=== PATIENT | male | born 1930 | race Caucasian/White ===

== ENCOUNTER 2018-06-23 11:42 | Inpatient (IN) ==
--- NOTE | 2018-06-23 14:28 | Internal Med History&Physical ---
<Aby Aragon - Last Filed: 06/23/18 14:21> Date of Encounter: 06/23/18 Time of Encounter: 14:51 Internal Medicine - H&P: HPI Chief complaint: SOB Admitted From: Home History of present illness: Mr. Canchola is a 88 year old male with PMH COPD, CAD, GERD and hiatal hernia presented to outside hospital on 06/23/2018 with complaints of worsening shortness of breath and chest pressure. He was transferred to [facility] for further workup and treatment. Information obtained from chart review, patient report and at bedside. reports patient has had progressive and worsening shortness of breath over the last 3 months with associated chest pressure. Patient reports substernal chest pressure that radiates across entire chest, does not radiate to jaw or arm. Says chest pressure typiclly occurs in the evening time once he is sitting down resting. Says he had an episode of abdominal pain and nausea this morning which is now resolved. No chest pain or shortness of breath on my exam. Past Med Surg Social Fam HX - Past Medical History Medical history: COPD, coronary artery disease, GERD, other Psychiatric history: no psych history - Past Surgical History Surgical History: cholecystectomy, colectomy, coronary bypass (CABG), herniorrhaphy Additional surgical history: colon surgery about 3 years ago, portion of colon removed - Social History Smoking Status: Never smoker Smokeless Tobacco Status: No Alcohol use: none Drug use: none - Family History Father Living Status: Age at : 70 Cause of : CHF Mother Living Status: Age at : 82 Cause of : Leukemia Internal Medicine - H&P: Meds Aspirin 81 mg PO DAILY 07/22/17 [History] Cholecalciferol (Vitamin D3) [Vitamin D] 1,000 unit PO DAILY 07/22/17 [History] Co Q-10 200 mg PO DAILY 07/22/17 [History] Cyanocobalamin (Vitamin B-12) [Vitamin B-12] 2,000 mcg PO DAILY 07/22/17 [ History] Ferrous Sulfate [Slow Fe] 142 mg PO DAILY 07/22/17 [History] Metoprolol [Lopressor] 12.5 mg PO DAILY 07/22/17 [History] Omeprazole [PriLOSEC] 20 mg PO BIDAC 07/22/17 [History] Rosuvastatin [Crestor] 40 mg PO HS 07/22/17 [History] Sucralfate [Carafate] 1 gm PO QIDAC #40 tablet 07/22/17 [Rx] 3 Allergy/AdvReac Type Severity Reaction Status Date / Time isosorbide Allergy Palpitation Verified 06/23/18 09:31 s shellfish derived Allergy Flushing Verified 06/23/18 09:31 All Systems PM: A 10-system review of systems was performed and is negative for pertinent findings except as documented above in the HPI. - Constitutional Constitutional: no chills, no fever(s), no night sweats - EENT Eyes: no change in vision, no discharge, no pain, no photophobia Ears: no ear discharge, no ear pain, no tinnitus Nose, mouth and throat: no dysphagia, no nasal discharge, no neck pain, no sore throat - Cardiovascular Cardiovascular ROS IM: chest pain, dyspnea on exertion, no diaphoresis, no dyspnea, no lightheadedness, no palpitations, no syncope - Respiratory Respiratory: dyspnea, no cough, no wheezing, no excessive phlegm production - Gastrointestinal Gastrointestinal: no abdominal pain, no diarrhea, no hematemesis, no hematochezia, no melena, no nausea, no vomiting - Musculoskeletal Musculoskeletal ROS IM: no numbness, no tingling - Integumentary Integumentary IM: no rash, no unusual bruising - Neurological Neurological ROS: no confusion, no convulsions, no focal weakness, no numbness, no tingling, no tremor(s) - Hematologic/Lymphatic Hematologic/Lymphatic: no easy bruising - Constitutional Vitals: Temp Pulse Resp BP Pulse Ox 98.7 F 67 15 152/81 96 06/23/18 13:16 06/23/18 13:16 06/23/18 13:16 06/23/18 13:16 06/23/18 13:16 General appearance: Present: A&O X 3, pleasant, no acute distress Exam: see below - Head Head exam: Present: atraumatic, normocephalic - Eye Eye exam: Present: PERRL, conjuntiva pink, sclera anicteric Pupils: Present: PERRL - Neck Neck exam general surgery: Present: supple, trachea midline. Absent: lymphadenopathy - Respiratory Respiratory exam: Present: decreased breath sounds. Absent: accessory muscle use, rales, rhonchi, wheezes - Cardiovascular Cardiovascular exam: Present: RRR, +S1, +S2. Absent: diastolic murmur, gallop, rubs, systolic murmur - GI/Abdominal GI/Abdominal exam: Present: normal bowel sounds, soft, no peritoneal signs. Absent: distended, tenderness - Extremities Exam Extremities exam: Present: pedal edema, warm, radial pulses palpable and symmetrical. Absent: calf tenderness, cyanotic - Neurological Exam Neurological exam: Present: CN II-XII intact, oriented X3, no focal deficits. Absent: pronater drift, facial droop, speech deficit - Skin Skin exam: Present: dry, intact - Assessment and plan (1) SOB (shortness of breath) Current Visit: Yes Status: Acute Assessment and plan: presented to OSH with complaints of worsening shortness of breath. CXR showed hiatal hernia otherwise nonacute. He does have some lower extremity pitting edema and diminished lung sounds. 07/2017 TTE with EF 65%, no valvular dysfunction or wall motion abnormalities. Give one-time dose IV Lasix. Monitor daily weight, strict I&O's. Repeat echo pending (2) CAD (coronary artery disease) Current Visit: Yes Status: Acute Assessment and plan: hx remote CABG in 2200. Now with intermittent as pressure and shortness of breath. Initial troponin at outside hospital unremarkable. EKG with known fascicular block. Continue to cycle troponin, check echocardiogram. NPO at midnight for stress test in the morning. Qualifiers: Coronary Disease-Associated Artery/Lesion type: bypass graft [place] vs. transplanted heart: [place] heart Associated angina: with stable angina Qualified Code(s): I25.708 - Atherosclerosis of coronary artery bypass graft(s) , unspecified, with other forms of angina pectoris (3) COPD (chronic obstructive pulmonary disease) Current Visit: Yes Status: Acute Assessment and plan: per hx. No evidence of exacerbation. PRN nebulizers Qualifiers: COPD type: unspecified COPD Qualified Code(s): J44.9 - Chronic obstructive pulmonary disease, unspecified (4) GERD (gastroesophageal reflux disease) Current Visit: Yes Status: Acute Assessment and plan: per hx. Cont home PPI Qualifiers: Esophagitis presence: without esophagitis Qualified Code(s): K21.9 - Gastro -esophageal reflux disease without esophagitis (5) DVT prophylaxis Current Visit: Yes Status: Acute Assessment and plan: lovenox (6) Hiatal hernia Current Visit: Yes Status: Acute Assessment and plan: per hx. CXR demonstrated known hiatal hernia. If symptoms persist after cardiac source ruled out consider further workup. - Time Spent With Patient Total time spent is greater than 50% in coordination of care (as documented) at patient's floor/unit and/or counseling patient: <Kirsty Butts - Last Filed: 06/23/18 16:03> Date of Encounter: 06/23/18 Internal Medicine - H&P: HPI History of present illness: Mr. Canchola is a 88 year old male All Systems PM: A 10-system review of systems was performed and is negative for pertinent findings except as documented above in the HPI. - Constitutional Vitals: Temp Pulse Resp BP Pulse Ox 98.7 F 67 15 152/81 96 06/23/18 13:16 06/23/18 13:16 06/23/18 13:16 06/23/18 13:16 06/23/18 13:16 Internal Med - H&P Results - Labs Labs: Cardiac Enzymes 06/23/18 Range/Units 14:59 Troponin I 0.05 H* (< 0.04) ng/mL - Assessment and plan (1) COPD (chronic obstructive pulmonary disease) Current Visit: Yes Status: Acute Qualifiers: COPD type: unspecified COPD Qualified Code(s): J44.9 - Chronic obstructive pulmonary disease, unspecified (2) CAD (coronary artery disease) Current Visit: Yes Status: Acute Qualifiers: Coronary Disease-Associated Artery/Lesion type: bypass graft [place] vs. transplanted heart: [place] heart Associated angina: with stable angina Qualified Code(s): I25.708 - Atherosclerosis of coronary artery bypass graft(s) , unspecified, with other forms of angina pectoris (3) GERD (gastroesophageal reflux disease) Current Visit: Yes Status: Acute Qualifiers: Esophagitis presence: without esophagitis Qualified Code(s): K21.9 - Gastro -esophageal reflux disease without esophagitis (4) DVT prophylaxis Current Visit: Yes Status: Acute (5) SOB (shortness of breath) Current Visit: Yes Status: Acute (6) Hiatal hernia Current Visit: Yes Status: Acute - Time Spent With Patient Total time spent is greater than 50% in coordination of care (as documented) at patient's floor/unit and/or counseling patient: - Attending Attestation Plan of care and medical decision-making was reviewed with the Nurse Practitioner. I agree with the documented findings, disposition and treatment plan as described except to any changes set forth below.
[2018-06-23] MEDS ORDERED: Naloxone 0.4 MG/ML INJ IVP PRN (14:39)
[2018-06-23] MEDS ORDERED: Furosemide 20 MG/2 ML VIAL IVP ONE (14:41)
[2018-06-24 04:19] LABS: Mean Corpuscular Hemoglobin 33.2 pg (28.0-33.3)
[2018-06-24 04:21] LABS: Hemoglobin 12.8 g/dL (12.9-16.9); Immature Platelets 3.5 % (1.1-6.1); Mean Corpuscular HGB Conc 33.7 g/dL (31.6-35.5); Mean Corpuscular Volume 98.4 fL (83.0-100.0); Mean Platelet Volume 10.5 fL (9.4-12.4); Red Blood Count 3.86 M/mcL (4.19-5.50); Red Cell Distribution Width 13.9 % (11.5-14.5)
[2018-06-24 04:41] LABS: BUN/Creatinine Ratio 22 (6-26); Blood Urea Nitrogen 17 mg/dL (8-23); Calcium 8.8 mg/dL (8.6-10.3); Carbon Dioxide 25 mEq/L (23-29); Chloride 106 mEq/L (98-107); Glucose 100 mg/dL (70-105); Osmolality,Calculated 286 (280-300); Potassium 3.5 mEq/L (3.5-5.1); Sodium 137 mEq/L (136-145); eGFR For Non-African Americans > 60 (> 60)
[2018-06-24] MEDS ORDERED: FERROUS SULFATE 142 MG PO SCH (10:00)
[2018-06-24] MEDS: Sucralfate 1 GM TABLET PO SCH ×3 (12:26→21:42)
[2018-06-24] MEDS: Aspirin 81 MG TAB.CHEW PO SCH (12:26)
[2018-06-24] MEDS: Metoprolol XL (24 HR) Succ 25 MG TAB.ER.24H PO SCH (12:26)
[2018-06-24] MEDS: (Ipratropium Bromide [Ipratropium Bromide] 1 SPR) NS SCH ×2 (12:28→20:23)
--- NOTE | 2018-06-24 13:37 | Cardiology Consult Note ---
<Ryan Dyer R - Last Filed: 06/24/18 13:54> Date of Encounter: 06/24/18 Time of Encounter: 13:33 Assessment and Plan (1) SOB (shortness of breath) Current Visit: Yes Status: Acute Pt and report worsening dyspnea over the past 3 months, get short of breath even with normal activities. Reports dyspnea was prior anginal equivalent. TTE EF 70%, mild cLVH, mild LVDD. Troponins borderline 0.05, 0.04 x 2. Stress test 01/2017 negative for ischemia or infarct. Known hx CAD s/p 3V CABG, has COPD with restrictive airway disease on PFTs in 2013. Pt also has moderate-large hiatal hernia on ABD/Pelvic CT 07/2017. All of these could be contributing to pt's dyspnea. Will order ABD CT to re-evaluate hiatal hernia. Will discuss and review with Dr. Salvador. After ABD CT results, will determine if ischemic evaluation needs to be considered (stress test vs LHC). (2) Chest pressure Current Visit: Yes Status: Acute Chest pressure seems atypical--not associated with exertion, mostly occurs in the evening and relieved with tums. Continue Prilosec. Troponins borderline--0.05, 0.04 x 2--unclear significance. TTE EF preserved. As above, known moderate-large hiatal hernia, will re-evaluate with CT. (3) CAD (coronary artery disease) Current Visit: Yes Status: Acute Hx 3V CABG in 2000. Reports LHC in 2009 without intervention. Continue ASA, Statin, BB. Qualifiers: Coronary Disease-Associated Artery/Lesion type: bypass graft [place] vs. transplanted heart: [place] heart Associated angina: with stable angina Qualified Code(s): I25.708 - Atherosclerosis of coronary artery bypass graft(s) , unspecified, with other forms of angina pectoris (4) Hiatal hernia Current Visit: Yes Status: Acute Moderate-large hiatal hernia on ABD/Pelvic CT 07/2017. Will repeat. Could be contributing to chest pressure and dyspnea. (5) Elevated troponin Current Visit: Yes Status: Acute Troponin 0.05, 0.04 x 2. Borderline. Do not suspect true ACS. Unclear significance. TTE EF preserved. As above, will determine if ischemic evaluation is warranted. Discussion w patient/family: The assessment and plan as outlined above was discussed with the patient and/or family members who expressed understanding and agreement. All questions were answered. Thank you for involving us in the care of your patient. Please call with any questions. I will discuss all the above with Dr. Salvador and make changes as necessary. History of Present Illness Consult date: 06/24/18 Requesting physician: Aby Aragon Consult reason: Chest pain Chief complaint: dyspnea, palpitations, chest pain History of present illness: Mr. Canchola is a 88 year old male with PMH of COPD, CAD s/p 3V CABG in 2000, GERD and hiatal hernia presented with complaints of worsening shortness of breath and chest pressure. reports patient has had progressive and worsening shortness of breath over the last 3 months with associated chest pressure. Worsening dyspnea occurs with regular activities. Patient reports substernal chest pressure that radiates across entire chest, does not radiate to jaw or arm. CP not associated with exertion. Per pt and , symptoms similar to prior anginal equivalent which was mostly worsening dyspnea. Troponins 0.05, 0.04 x 2. Cardiology consulted for further recs. TTE resulted-- EF 70%, mild cLVH, mild LVDD. Pt and report tachycardic events at home with HR as high as 160. Holter monitor last year showed multiple brief runs of PAT. Prior CV testing: Holter 01/2017: Occasional PVCs and PACs, short runs PAT. Stress test 01/2017: Perfusion imaging negative for ischemia or infarct, gated EF >70%. TTE 07/2017: EF 65-70%, no significant valvular dysfunction. Past Med Surg Social Fam HX - Past Medical History Medical history: COPD, coronary artery disease, GERD, other Psychiatric history: no psych history - Past Surgical History Surgical History: cholecystectomy, colectomy, coronary bypass (CABG), herniorrhaphy Additional surgical history: colon surgery about 3 years ago, portion of colon removed - Social History Smoking Status: Never smoker Smokeless Tobacco Status: No Alcohol use: none Drug use: none - Family History Father Living Status: Age at : 70 Cause of : CHF Mother Living Status: Age at : 82 Cause of : Leukemia Medications and Allergies Aspirin 81 mg PO DAILY 07/22/17 [History] Cholecalciferol (Vitamin D3) [Vitamin D] 1,000 unit PO DAILY 07/22/17 [History] Cyanocobalamin (Vitamin B-12) [Vitamin B-12] 2,000 mcg PO DAILY 07/22/17 [ History] Ferrous Sulfate [Slow Fe] 142 mg PO DAILY 07/22/17 [History] Omeprazole [PriLOSEC] 20 mg PO BIDAC 07/22/17 [History] Rosuvastatin [Crestor] 40 mg PO HS 07/22/17 [History] Sucralfate [Carafate] 1 gm PO QIDAC #40 tablet 07/22/17 [Rx] Ubidecarenone/Vit E/Vit E Mix [Co-Enzyme Q10 100 mg Softgel] 200 mg PO DAILY [History] Ipratropium [place] [Ipratropium [place]] 1 spr NS BID 06/24/18 [History] Metoprolol XL (24 HR) Succ [Toprol Xl] 12.5 mg PO DAILY 06/24/18 [History] 3 Allergy/AdvReac Type Severity Reaction Status Date / Time isosorbide Allergy Palpitation Verified 06/23/18 09:31 s shellfish derived Allergy Flushing Verified 06/23/18 09:31 All Systems Review: The remainder of the systems were reviewed and are negative - Cardiovascular Cardiovascular: as per HPI, chest pain at rest, chest pain with exertion, dyspnea on exertion, leg edema, palpitations - Respiratory Respiratory: dyspnea Physical Examination Vital Signs, Last 4 Hours Temp Pulse Resp BP Pulse Ox 06/24/18 12:17 98.0 F 67 16 124/66 93 Vital Signs Temp Pulse Resp BP Pulse Ox 06/24/18 12:17 98.0 F 67 16 124/66 93 06/24/18 07:57 97.9 F 63 16 133/71 93 06/24/18 02:55 98.7 F 72 16 124/81 94 06/23/18 23:13 98.3 F 75 16 122/66 91 06/23/18 18:21 99.4 F 77 16 106/49 90 Intake and Output 06/23/18 06/24/18 06/24/18 23:59 07:59 15:59 Output Total 775 / 775 Balance -775 / -775 Output: Urine 775 / 775 Other: Weight 104 kg Patient Weight 06/24/18 23:59 Weight 104 kg General: Conversant, No Apparent Distress HEENT: Atraumatic, Normocephaly, Mucus Membranes Moist Neck: No JVD, Normal carotid pulses Cardiac: Reg Rate and Rhythm, Normal S1 and S2, No Murmur Lungs: Normal Breath Sounds, No Wheeze, Rales, Rhonchi Neuro: Alert and responsive, No focal deficits noted Abdomen: Soft, Non-Tender Skin: No rashes noted on visualized skin Musculoskeletal: No Chest Wall Tenderness Extremities: No Clubbing, No Cyanosis, No Edema, Normal Pulses Results 06/24/18 03:09 06/24/18 03:09 Lab Results 06/23/18 06/23/18 06/24/18 14:59 20:27 03:09 WBC Hgb Hct Plt Count Sodium Potassium Chloride Carbon Dioxide BUN Creatinine Glucose Calcium Troponin I 0.05 H* 0.04 H* 0.04 H* 06/24/18 06/24/18 03:09 03:09 WBC 4.4 Hgb 12.8 L Hct 38.0 Plt Count 93 L Sodium 137 Potassium 3.5 Chloride 106 Carbon Dioxide 25 BUN 17 Creatinine 0.79 Glucose 100 Calcium 8.8 Troponin I Short CBC 06/24/18 Range/Units 03:09 WBC 4.4 (4.3-11.1) K/mcL Hgb 12.8 L (12.9-16.9) g/dL Hct 38.0 (37.5-50.1) % Plt Count 93 L (140-400) K/mcL BMP 06/24/18 Range/Units 03:09 Sodium 137 (136-145) mEq/L Potassium 3.5 (3.5-5.1) mEq/L Chloride 106 (98-107) mEq/L Carbon Dioxide 25 (23-29) mEq/L BUN 17 (8-23) mg/dL Creatinine 0.79 (0.70-1.30) mg/dL Glucose 100 (70-105) mg/dL Calcium 8.8 (8.6-10.3) mg/dL Cardiac Enzymes 06/24/18 06/23/18 06/23/18 Range/Units 03:09 20:27 14:59 Troponin I 0.04 H* 0.04 H* 0.05 H* (< 0.04) ng/mL Impressions Echocardiogram 06/24/18 14:41 Impressions: Normal LV size and systolic function. LVEF= 70 %. Mild concentric VH. Mild diastolic dysfunction. Mildly dilated left atrium . Normal RV size and function. No hemodynamically significant valvular abnormality. Findings: Study Quality * Technically adequate exam. ECG Findings * Normal sinus rhythm. Left Ventricle * LVEF 70%. * Mild concentric left ventricular hypertrophy. * Mild left ventricular diastolic dysfunction. Right Ventricle * Normal right ventricular structure and function. Left Atrium * Mildly dilated left atrium. Right Atrium * Normal right atrial size. Aortic Valve * Trileaflet aortic valve. * Mildly sclerotic aortic valve leaflets. Mitral Valve * Normal mitral valve structure and function. Tricuspid Valve * Normal tricuspid valve structure and function. Pulmonic Valve * Pulmonic valve not well visualized. Aorta * Normally sized aortic root. Pericardium * The pericardium appears normal. IVC * The IVC is not well evaluated. Active Medications Aspirin (Aspirin) 81 mg PO DAILY [facility] Stop: 12/24/18 10:01 Last Admin: 06/24/18 12:26 Dose: 81 mg Metoprolol Succinate (Toprol Xl) 12.5 mg PO DAILY [facility] Stop: 12/24/18 10:01 Last Admin: 06/24/18 12:26 Dose: 12.5 mg Naloxone HCl (Narcan) 0.4 mg IVP Q2MIN PRN PRN Reason: SEE COMMENTS Stop: 12/23/18 14:40 Omeprazole (Prilosec) 20 mg PO BIDAC [facility] PRN Reason: Protocol Stop: 12/24/18 10:01 Last Admin: 06/24/18 12:26 Dose: 20 mg Pharmacy Profile Note (Patient Taking Own Medication) 0 each PO DAILY [facility] Stop: 12/24/18 10:01 Last Admin: 06/24/18 12:28 Dose: Not Given Pharmacy Profile Note (Patient Taking Own Medication) 0 each NS BID [facility] Stop: 12/24/18 10:01 Last Admin: 06/24/18 12:28 Dose: Not Given Pharmacy Profile Note (Patient Taking Own Medication) 0 each PO DAILY [facility] Stop: 12/25/18 09:01 Rosuvastatin Calcium (Crestor) 40 mg PO HS [facility] Stop: 12/24/18 10:01 Last Admin: 06/24/18 12:26 Dose: 40 mg Sucralfate (Carafate) 1 gm PO QIDAC [facility] Stop: 12/24/18 11:31 Last Admin: 06/24/18 12:26 Dose: 1 gm - Imaging and Cardiology Stress Test: report reviewed Echo: report reviewed - EKG Interpretation EKG results cardiology: personally reviewed, other (12 hr tele AVG HR 66, SR) Consult Discharge Plan - Plan Referrals: Lazaro Estes DO [Primary Care Provider] - <Sahara Salvador - Last Filed: 06/24/18 18:41> Date of Encounter: 06/24/18 - Attending Attestation I examined this patient and my medical decision-making was reviewed with the ALLERGY AND IMMUNOLOGY SPECIALIST. I agree with the documented findings, disposition and treatment plan as described except. 88M presenting with a constellation of symptoms including dizziness, dyspnea, chest pressure, fatigue and weakness. After detailed inquiry, it appears that his symptoms have been ongoing for about a year, possibly worse recently although history taking is somewhat challenging and mainly from his . Patient is alert, oriented but has mild baseline cognitive impairment. Admits to functional decline over the past year, sleeping more often throughout the day. Vital signs stable. NAD at the bedside. No concerning exam findings. ECG with RBBB, presumably new. CT chest with moderate to large hiatal hernia 1 year ago. PFTs in 2014 were abnormal. Impression/Plan: 1. Chest Pressure: Symptoms are atypical without acute ECG changes and flat troponins. However, has known CAD and symptoms of chest pressure and dyspnea may be anginal equivalent. We discussed consideration for LHC but given age and comorbidities I have not strongly recommended this. They are contemplative. Continue aspirin, statin, BB. 2. Dyspnea: Possibly multifactorial - has abnormal PFTs in 2014, has moderate to large hiatal hernia 1 year ago. Will repeat the chest CT to re-evaluate dyspnea. Possibly related to angina - have considered LHC. Assessment and Plan Discussion w patient/family: The assessment and plan as outlined above was discussed with the patient and/or family members who expressed understanding and agreement. All questions were answered. Thank you for involving us in the care of your patient. Please call with any questions. History of Present Illness History of present illness: Mr. Canchola is a 88 year old male All Systems Review: The remainder of the systems were reviewed and are negative Physical Examination Vital Signs, Last 4 Hours Temp Pulse Resp BP Pulse Ox 06/24/18 15:45 98.1 F 77 16 100/68 93 Results 06/24/18 03:09 06/24/18 03:09 Lab Results 06/23/18 06/24/18 06/24/18 20:27 03:09 03:09 WBC 4.4 Hgb 12.8 L Hct 38.0 Plt Count 93 L Sodium Potassium Chloride Carbon Dioxide BUN Creatinine Glucose Calcium Troponin I 0.04 H* 0.04 H* 06/24/18 03:09 WBC Hgb Hct Plt Count Sodium 137 Potassium 3.5 Chloride 106 Carbon Dioxide 25 BUN 17 Creatinine 0.79 Glucose 100 Calcium 8.8 Troponin I
--- NOTE | 2018-06-24 15:46 | Internal Med Progress Note ---
Hospitalist Progress Note - Encounter Date of Encounter: 06/24/18 Time of Encounter: 15:44 - Subjective Interval History: Seen and examined at bedside. Patient says he feels weak and tired but overall improved. Ambulated for a good amount hallway and denies chest pain or shortness of breath although he does appear mildly dyspneic on exam. - Exam Vitals: Temp Pulse Resp BP Pulse Ox 98.0 F 67 16 124/66 93 06/24/18 12:17 06/24/18 12:17 06/24/18 12:17 06/24/18 12:17 06/24/18 12:17 Exam: General appearance: Present: A&O X 3, pleasant, no acute distress - Head Head exam: Present: atraumatic, normocephalic - Eye Eye exam: Present: PERRL, conjuntiva pink, sclera anicteric Pupils: Present: PERRL - Neck Neck exam general surgery: Present: supple, trachea midline. Absent: lymphadenopathy - Respiratory Respiratory exam: Present: chest wall tenderness, CTAB. Absent: accessory muscle use, rales, rhonchi, wheezes - Cardiovascular Cardiovascular exam: Present: RRR, +S1, +S2 + murmur. Absent: gallop, rubs - GI/Abdominal GI/Abdominal exam: Present: normal bowel sounds, soft, no peritoneal signs. Absent: distended, tenderness - Extremities Exam Extremities exam: Present: warm, radial pulses palpable and symmetrical. Absent : calf tenderness, cyanotic, pedal edema - Neurological Exam Neurological exam: Present: CN II-XII intact, oriented X3, no focal deficits. Absent: pronater drift, facial droop, speech deficit - Skin Skin exam: Present: dry, intact - Assessment and Plan (1) Acute diastolic (congestive) heart failure Current Visit: Yes Status: Acute Assessment and Plan: presented to OSH with complaints of worsening shortness of breath. CXR showed hiatal hernia otherwise nonacute. He does have some lower extremity pitting edema and diminished lung sounds. 06/24/18 TTE with EF 70%, mild diastolic dysfunction, no significant valvular abnormalities. Symptoms improved with one- time dose IV Lasix however he appears mildly dyspneic. Continue low-dose IV diuresis, monitor daily weights, strict I's and O's. Cardiology following (2) CAD (coronary artery disease) Current Visit: Yes Status: Acute Assessment and Plan: hx remote CABG in 2200. Now with intermittent chest pressure and shortness of breath. Initial troponin at outside hospital unremarkable. Troponin peaked at 0.05 after arrival and trended down. EKG with known fascicular block. TTE with preserved EF as noted above. Stress test ordered however on hold as other sources of chest pain or worked up. Continue to monitor on telemetry. Cardiology following. Continue home ASA, BB, statin. (3) COPD (chronic obstructive pulmonary disease) Current Visit: Yes Status: Acute Assessment and Plan: per hx. No evidence of exacerbation. PRN nebulizers (4) GERD (gastroesophageal reflux disease) Current Visit: Yes Status: Acute Assessment and Plan: per hx. Cont home PPI (5) Hiatal hernia Current Visit: Yes Status: Acute Assessment and Plan: per hx. CXR demonstrated known hiatal hernia. ABD CT with moderate to large hiatal hernia. This could be contributing to dyspnea. NPO at midnight. GI consult (6) Cirrhosis Current Visit: Yes Status: Acute Assessment and Plan: ABD with Liver nodularity consistent with cirrhosis. Appears compensated. Check LFTs. - Time Spent with Patient Total time spent is greater than 50% in coordination of care (as documented) at patient's floor/unit and/or counseling patient: Internal Medicine: Result - Labs CBC & Chem 7: 06/24/18 03:09 06/24/18 03:09 Labs: Short CBC 06/24/18 Range/Units 03:09 WBC 4.4 (4.3-11.1) K/mcL Hgb 12.8 L (12.9-16.9) g/dL Hct 38.0 (37.5-50.1) % Plt Count 93 L (140-400) K/mcL BMP 06/24/18 03:09 Sodium 137 Potassium 3.5 Chloride 106 Carbon Dioxide 25 BUN 17 Creatinine 0.79 Glucose 100 Calcium 8.8 Cardiac Enzymes 06/23/18 06/24/18 Range/Units 20:27 03:09 Troponin I 0.04 H* 0.04 H* (< 0.04) ng/mL - Impressions Impressions Echocardiogram 06/24/18 14:41 Impressions: Normal LV size and systolic function. LVEF= 70 %. Mild concentric VH. Mild diastolic dysfunction. Mildly dilated left atrium . Normal RV size and function. No hemodynamically significant valvular abnormality. Findings: Study Quality * Technically adequate exam. ECG Findings * Normal sinus rhythm. Left Ventricle * LVEF 70%. * Mild concentric left ventricular hypertrophy. * Mild left ventricular diastolic dysfunction. Right Ventricle * Normal right ventricular structure and function. Left Atrium * Mildly dilated left atrium. Right Atrium * Normal right atrial size. Aortic Valve * Trileaflet aortic valve. * Mildly sclerotic aortic valve leaflets. Mitral Valve * Normal mitral valve structure and function. Tricuspid Valve * Normal tricuspid valve structure and function. Pulmonic Valve * Pulmonic valve not well visualized. Aorta * Normally sized aortic root. Pericardium * The pericardium appears normal. IVC * The IVC is not well evaluated. Abdomen CT 06/24/18 15:00 IMPRESSION: Moderate to large hiatal hernia without evidence of wall thickening of the stomach. A small amount of fluid can be seen in the hernia sac. Liver nodularity consistent with cirrhosis. Mild fat containing ventral hernia which appears uncomplicated. Suggestion of left colonic thickening consistent with mild colitis. D/ / Shira Garcia MD / Shira Garcia MD Interpreting Provider: Shira Garcia MD Consult Discharge Plan - Plan Referrals: Lazaro Estes DO [Primary Care Provider] - (2) CAD (coronary artery disease) Qualifiers: Coronary Disease-Associated Artery/Lesion type: bypass graft [place] vs. transplanted heart: [place] heart Associated angina: with stable angina Qualified Code(s): I25.708 - Atherosclerosis of coronary artery bypass graft(s) , unspecified, with other forms of angina pectoris (3) COPD (chronic obstructive pulmonary disease) Qualifiers: COPD type: unspecified COPD Qualified Code(s): J44.9 - Chronic obstructive pulmonary disease, unspecified (4) GERD (gastroesophageal reflux disease) Qualifiers: Esophagitis presence: without esophagitis Qualified Code(s): K21.9 - Gastro- esophageal reflux disease without esophagitis
[2018-06-24] MEDS: Furosemide 20 MG/2 ML VIAL IVP SCH (16:46)
[2018-06-25 05:33] LABS: Hematocrit 39.8 % (37.5-50.1); Hemoglobin 13.4 g/dL (12.9-16.9); Mean Corpuscular HGB Conc 33.7 g/dL (31.6-35.5); Mean Corpuscular Hemoglobin 32.9 pg (28.0-33.3); Mean Corpuscular Volume 97.8 fL (83.0-100.0); Mean Platelet Volume 10.5 fL (9.4-12.4); Platelet Count 104 K/mcL (140-400); Red Blood Count 4.07 M/mcL (4.19-5.50); Red Cell Distribution Width 13.6 % (11.5-14.5)
[2018-06-25 05:39] LABS: INR 1.3; Prothrombin Time 14.4 Seconds (9.4-12.1)
[2018-06-25 05:44] LABS: BUN/Creatinine Ratio 21 (6-26); Blood Urea Nitrogen 16 mg/dL (8-23); Calcium 8.8 mg/dL (8.6-10.3); Carbon Dioxide 24 mEq/L (23-29); Chloride 106 mEq/L (98-107); Glucose 101 mg/dL (70-105); Osmolality,Calculated 287 (280-300); Potassium 3.6 mEq/L (3.5-5.1); Sodium 138 mEq/L (136-145); eGFR For Non-African Americans > 60 (> 60)
[2018-06-25 05:46] LABS: Albumin 3.3 g/dL (3.5-5.7); Albumin/Globulin Ratio 1.2 (1.1-2.2); Bilirubin,Indirect 0.9 mg/dL (0.0-1.2); Bilirubin,Total 0.9 mg/dL (0.3-1.0); Globulin 2.7 g/dL (2.4-3.5)
[2018-06-25] MEDS: *HR* Enoxaparin 40 MG/0.4 ML SYRINGE SQ SCH (05:47)
--- NOTE | 2018-06-25 10:03 | Gastroenterology Consult Note ---
<Katerine Seth - Last Filed: 06/25/18 09:59> Date of Encounter: 06/25/18 Time of Encounter: 08:30 - Assessment and plan (1) Hiatal hernia Status: Acute Assessment and plan: Large hiatal hernia on CT, may be causing chest pressure. Continue PPI will plan for EGD tomorrow if ok with cardiology. (2) GERD (gastroesophageal reflux disease) Status: Acute Qualifiers: Esophagitis presence: without esophagitis Qualified Code(s): K21.9 - Gastro -esophageal reflux disease without esophagitis (3) Chest pressure Status: Acute (4) Cirrhosis Status: Acute Assessment and plan: LFTs wnl, Meld Na 11 Child Rucker class b Qualifiers: Hepatic cirrhosis type: unspecified hepatic cirrhosis Ascites presence: with ascites Qualified Code(s): K74.60 - Unspecified cirrhosis of liver; R18.8 - Other ascites - Time Spent With Patient Total time spent is greater than 50% in coordination of care (as documented) at patient's floor/unit and/or counseling patient: GI History of Present Illness - Data of Consult Patient: new to practice Consult date: 06/25/18 Requesting Physician: Kirsty Butts MD - Consult Narrative Reason for consult: chest pain/large hiatal hernia History of present illness: Mr. Canchola is a 88 year old male with PMH COPD, CAD, GERD and hiatal hernia, and colon resection. He presented to outside hospital on 06/23/2018 with complaints of worsening shortness of breath and chest pressure. He was transferred to [facility] for further workup and treatment. reports patient has had progressive and worsening shortness of breath over the last 3 months with associated chest pressure. Patient reports substernal chest pressure that radiates across entire chest, does not radiate to jaw or arm. Says chest pressure typically occurs in the evening time once he is sitting down resting. He also admits to chronic nausea for the past year. CT shows [id number] hiatal hernia without evidence of wall thickening of the stomach. A small amount of fluid can be seen in the hernia sac. Liver nodularity consistent with cirrhosis. Mild fat containing ventral hernia which appears uncomplicated. Suggestion of left colonic thickening consistent with mild colitis. He states he has GERD and is on omeprazole and carafate but sometimes takes rolaids as well. His states he "not completely with it" and "doesn't always take his meds like he's suppose to". He has occasional diarrhea, mostly in the mornings and after he eats out. He denies rectal bleeding, states he has black stools because he is on iron. colonoscopy: 10/16 friable mucosa at the anastamosis nsaids: asa 81 mg anticoagulants: lovenox Past Med Surg Social Fam HX - Past Medical History Medical history: COPD, coronary artery disease, GERD, other Psychiatric history: no psych history - Past Surgical History Surgical History: cholecystectomy, colectomy, coronary bypass (CABG), herniorrhaphy Additional surgical history: colon surgery about 3 years ago, portion of colon removed - Social History Smoking Status: Never smoker Smokeless Tobacco Status: No Alcohol use: none Drug use: none - Family History Father Living Status: Age at : 70 Cause of : CHF Mother Living Status: Age at : 82 Cause of : Leukemia Review of Systems: GI: as per [place] GENERAL: denies fever, or chills EYES: denies yellow discoloration ENT: denies pain with swallowing or difficulty swallowing CARDIO: see HPI RESP: Shortness of breath with exertion : denies change in color of urine NEURO: generalized weakness HEME: Denies any bruising MS: denies joint pain, joint swelling or back pain. DERM: denies rash or itching PSYCH: Denies history of anxiety or depression - Constitutional Vitals: Temp Pulse Resp BP Pulse Ox 97.9 F 64 17 104/61 94 06/25/18 07:35 06/25/18 07:35 06/25/18 07:35 06/25/18 07:35 06/25/18 07:35 Exam: CONSTITUTIONAL:~alert, no acute distress.~HEAD:~normocephalic.~EYES:~no jaundice.~NECK:~no obvious swelling.~HEART:~regular rate and rhythm, no murmurs. ~LUNGS:~bilateral fair air entry.~ABDOMEN:~non distended, soft, tender to epigastric area, no masses palpable, no organomegaly.~RECTAL EXAM:~Deferred.~ EXTREMITIES:~no clubbing, cyanosis or edema.~SKIN:~no stigmata of chronic liver disease.~NEUROLOGIC:~no obvious focal defect.~~~~ Results - Labs CBC & Chem 7: 06/25/18 04:29 06/25/18 04:29 Labs: Last Result Calcium 8.8 mg/dL (8.6-10.3) 06/25/18 04:29 Troponin I 0.04 ng/mL (< 0.04) H* 06/24/18 03:09 Entire Visit Hgb 13.4 g/dL (12.9-16.9) 06/25/18 04:29 Hct 39.8 % (37.5-50.1) 06/25/18 04:29 PT 14.4 Seconds (9.4-12.1) H 06/25/18 04:29 Total Bilirubin 0.9 mg/dL (0.3-1.0) 06/25/18 04:29 AST 37 Units/L (13-39) 06/25/18 04:29 ALT 19 Units/L (7-52) 06/25/18 04:29 - ABG ABG results: PT/INR, D-dimer PT 14.4 Seconds (9.4-12.1) H 06/25/18 04:29 - Impressions Impressions Echocardiogram 06/24/18 14:41 Impressions: Normal LV size and systolic function. LVEF= 70 %. Mild concentric VH. Mild diastolic dysfunction. Mildly dilated left atrium . Normal RV size and function. No hemodynamically significant valvular abnormality. Findings: Study Quality * Technically adequate exam. ECG Findings * Normal sinus rhythm. Left Ventricle * LVEF 70%. * Mild concentric left ventricular hypertrophy. * Mild left ventricular diastolic dysfunction. Right Ventricle * Normal right ventricular structure and function. Left Atrium * Mildly dilated left atrium. Right Atrium * Normal right atrial size. Aortic Valve * Trileaflet aortic valve. * Mildly sclerotic aortic valve leaflets. Mitral Valve * Normal mitral valve structure and function. Tricuspid Valve * Normal tricuspid valve structure and function. Pulmonic Valve * Pulmonic valve not well visualized. Aorta * Normally sized aortic root. Pericardium * The pericardium appears normal. IVC * The IVC is not well evaluated. Abdomen CT 06/24/18 15:00 IMPRESSION: Gyzpjxzb-[id number]-ezuww hiatal hernia without evidence of wall thickening of the stomach. A small amount of fluid can be seen in the hernia sac. Liver nodularity consistent with cirrhosis. Mild fat containing ventral hernia which appears uncomplicated. Suggestion of left colonic thickening consistent with mild colitis. D/ / 06/24/2018 16:15:17 Shira Garcia MD / [email or web address] Interpreting Provider: Shira Garcia MD Consult Discharge Plan - Plan Instructions: Heart Failure (DC), Chronic Obstructive Pulmonary Disease (DC) Referrals: Katerine Seth [Advanced Practice Nurse] - (hospital follow up requested. office will call you with date and time of appointment. If they do not call you , call them. ) Lazaro Estes, [Primary Care Provider] - 07/01/18 11:30 am () Prescriptions: Furosemide [Lasix] 10 mg PO DAILY 3 Days #3 tablet Ranolazine [Ranexa] 500 mg PO BID 30 Days #60 tab.er.12h <Alexis Redd - Last Filed: 07/20/18 15:52> Date of Encounter: 06/25/18 - Time Spent With Patient Total time spent is greater than 50% in coordination of care (as documented) at patient's floor/unit and/or counseling patient: GI History of Present Illness - Data of Consult Requesting Physician: Kirsty Butts MD - Consult Narrative History of present illness: Mr. Canchola is a 88 year old male - Constitutional Vitals: Temp Pulse Resp BP Pulse Ox 97.7 F 81 20 120/74 93 06/26/18 13:00 06/26/18 13:00 06/26/18 15:39 06/26/18 13:00 06/26/18 15:39 Results - Labs CBC & Chem 7: 06/26/18 02:54 06/26/18 02:54 Labs: Last Result Calcium 8.7 mg/dL (8.6-10.3) 06/26/18 02:54 Troponin I 0.04 ng/mL (< 0.04) H* 06/24/18 03:09 Entire Visit Hgb 13.3 g/dL (12.9-16.9) 06/26/18 02:54 Hct 38.8 % (37.5-50.1) 06/26/18 02:54 PT 14.4 Seconds (9.4-12.1) H 06/25/18 04:29 Total Bilirubin 0.9 mg/dL (0.3-1.0) 06/25/18 04:29 AST 37 Units/L (13-39) 06/25/18 04:29 ALT 19 Units/L (7-52) 06/25/18 04:29 - ABG ABG results: PT/INR, D-dimer PT 14.4 Seconds (9.4-12.1) H 06/25/18 04:29 - Attending Attestation I have personally performed a face to face evaluation on this patient. I have reviewed and agree with the care plan. History and Exam by me shows:
[2018-06-25] MEDS: Ranolazine 500 MG TAB.ER.12H PO SCH ×2 (11:32→21:08)
[2018-06-25] MEDS: Sucralfate 1 GM TABLET PO SCH ×4 (11:34→21:08)
[2018-06-25] MEDS: Aspirin 81 MG TAB.CHEW PO SCH (11:34)
[2018-06-25] MEDS: Metoprolol XL (24 HR) Succ 25 MG TAB.ER.24H PO SCH (11:34)
[2018-06-25] MEDS: VIT E PO SCH (11:36)
[2018-06-25] MEDS: (Ipratropium Bromide [Ipratropium Bromide] 1 SPR) NS SCH ×2 (11:36→21:09)
[2018-06-25] MEDS: Furosemide 20 MG/2 ML VIAL IVP SCH (11:36)
[2018-06-25] MEDS: UBIDECARENONE PO SCH (11:36)
[2018-06-25] MEDS: VIT E MIX PO SCH (11:36)
--- NOTE | 2018-06-25 11:54 | Cardiology Progress Note ---
Date of Encounter: 06/25/18 Time of Encounter: 08:30 Assessment and Plan (1) Shortness of breath Current Visit: Yes Status: Acute Pt and report worsening dyspnea over the past 6+ months. Reports shortness of breath occurs at both rest and exertion. Patient is noted to have difficulty describing symptoms, PMHx, and seems forgetful at times. TTE EF 70%, mild cLVH, mild LVDD. Troponins borderline 0.05, 0.04 x 2. Stress test 01/2017 negative for ischemia or infarct. 24 I&O: -1475 mL; on IV lasix. Appears euvolemic upon exam, would recommend changing to po (low dose). Known hx CAD s/p 3V CABG, has COPD with restrictive airway disease on PFTs in 2013. Pt also has moderate-large hiatal hernia on ABD/Pelvic CT 07/2017. All of these could be contributing to pt's dyspnea. (2) Elevated troponin Current Visit: Yes Status: Acute Troponin 0.05, 0.04 x 2. Borderline. Do not suspect true ACS. Unclear significance. TTE EF preserved. Recent normal stress test January 2017, do not recommend repeating stress test at this time. I discussed possible LHC; however given advanced age, discussed with patient/ increased risk for CVA and risk of KATHY, AL, and . At this point, given other co-morbidities which may be contributing to symptoms, they want to continue medical therapy. Will start Ranexa. (3) CAD (coronary artery disease) Current Visit: Yes Status: Acute Hx 3V CABG in 2000. Reports LHC in 2009 without intervention. Continue ASA, Statin, BB. Qualifiers: Coronary Disease-Associated Artery/Lesion type: bypass graft [place] vs. transplanted heart: [place] heart Associated angina: without angina Qualified Code(s): I25.810 - Atherosclerosis of coronary artery bypass graft(s) without angina pectoris (4) Hiatal hernia Current Visit: Yes Status: Acute Moderate-large hiatal hernia on ABD/Pelvic CT 07/2017. Will repeat. Could be contributing to chest pressure and dyspnea. (5) Chest pressure Current Visit: Yes Status: Acute Chest pressure seems atypical--not associated with exertion, mostly occurs in the evening and relieved with tums. Continue Prilosec. Troponins borderline--0.05, 0.04 x 2--unclear significance. TTE EF preserved. As above, known moderate-large hiatal hernia, remains moderate-large. GI consulted and following with plans for EGD in AM. Discussion w patient/family: The assessment and plan as outlined above was discussed with the patient and/or family members who expressed understanding and agreement. All questions were answered. Thank you for involving us in the care of your patient. Please call with any questions. The patient will be discussed and reviewed with Dr. Salvador; changes to be made accordingly. Subjective Principal diagnosis: Shortness of breath Interval history: Seen and examined. Reports only has dyspnea at rest, has no symptoms when up walking around. Reports when does have shortness of breath, improves after he takes a Tums. He denies chest pain or pressure. He denies ever having chest pain or discomfort. Objective Vital Signs, Last 4 Hours Temp Pulse Resp BP Pulse Ox 06/25/18 11:20 97.6 F 70 17 143/81 94 General: Conversant, No Apparent Distress HEENT: Atraumatic, Normocephaly, Mucus Membranes Moist Cardiac: Reg Rate and Rhythm, Normal S1 and S2 Lungs: Normal Breath Sounds Neuro: Alert and responsive Abdomen: Soft Skin: No rashes noted on visualized skin Musculoskeletal: No Chest Wall Tenderness Extremities: No Edema, Normal Pulses Results 06/25/18 04:29 06/25/18 04:29 Lab Results 06/25/18 06/25/18 06/25/18 04:29 04:29 04:29 WBC 4.2 L Hgb 13.4 Hct 39.8 Plt Count 104 L INR 1.3 Sodium 138 Potassium 3.6 Chloride 106 Carbon Dioxide 24 BUN 16 Creatinine 0.75 Glucose 101 Calcium 8.8 Total Bilirubin AST ALT Alkaline Phosphatase 06/25/18 04:29 WBC Hgb Hct Plt Count INR Sodium Potassium Chloride Carbon Dioxide BUN Creatinine Glucose Calcium Total Bilirubin 0.9 AST 37 ALT 19 Alkaline Phosphatase 88 - Imaging and Cardiology Echo: report reviewed - EKG Interpretation EKG results cardiology: personally reviewed Consult Discharge Plan - Plan Referrals: Lazaro Estes DO [Primary Care Provider] - 07/01/18 11:30 am ()
--- NOTE | 2018-06-25 11:58 | Internal Med Progress Note ---
Hospitalist Progress Note - Encounter Date of Encounter: 06/25/18 Time of Encounter: 11:56 - Subjective Interval History: No acute events. No complaints. - Exam Vitals: Temp Pulse Resp BP Pulse Ox 97.6 F 70 17 143/81 94 06/25/18 11:20 06/25/18 11:20 06/25/18 11:20 06/25/18 11:20 06/25/18 11:20 Exam: Gen: NAD, AAOx3 CVS: RRR Lungs: Rales at lower lobes. Abd: NT, ND Ext: bipedal edema 1+ both lower extremities. - Assessment and Plan (1) Acute diastolic (congestive) heart failure Current Visit: Yes Status: Acute Assessment and Plan: presented to OSH with complaints of worsening shortness of breath. CXR showed hiatal hernia otherwise nonacute. He does have some lower extremity pitting edema and diminished lung sounds. 06/24/18 TTE with EF 70%, mild diastolic dysfunction, no significant valvular abnormalities. Symptoms improved with one- time dose IV Lasix however he appears mildly dyspneic. Continue low-dose IV diuresis, monitor daily weights, strict I's and O's. Cardiology following (2) COPD (chronic obstructive pulmonary disease) Current Visit: Yes Status: Acute Assessment and Plan: Patient complains of wheezing at night time Ipratroprium neb prn. No wheezing on my exam, will hold on steroid therapy for now. (3) CAD (coronary artery disease) Current Visit: Yes Status: Acute Assessment and Plan: hx remote CABG in 2200. Now with intermittent chest pressure and shortness of breath. Initial troponin at outside hospital unremarkable. Troponin peaked at 0.05 after arrival and trended down. EKG with known fascicular block. TTE with preserved EF as noted above. Stress test ordered however on hold as other sources of chest pain or worked up. Continue to monitor on telemetry. Cardiology following, recommendations appreciated. (4) GERD (gastroesophageal reflux disease) Current Visit: Yes Status: Acute Assessment and Plan: per hx. Cont home PPI (5) Hiatal hernia Current Visit: Yes Status: Acute Assessment and Plan: per hx. CXR demonstrated known hiatal hernia. ABD CT with moderate to large hiatal hernia. This could be contributing to dyspnea. NPO at midnight. GI consult Plan for EGD (6) Cirrhosis Current Visit: Yes Status: Acute Assessment and Plan: ABD with Liver nodularity consistent with cirrhosis. Appears compensated. Check LFTs. (7) Weakness Current Visit: Yes Status: Acute Assessment and Plan: PT/OT - Time Spent with Patient Total time spent is greater than 50% in coordination of care (as documented) at patient's floor/unit and/or counseling patient: Internal Medicine: Result - Labs CBC & Chem 7: 06/25/18 04:29 06/25/18 04:29 Labs: Short CBC 06/25/18 Range/Units 04:29 WBC 4.2 L (4.3-11.1) K/mcL Hgb 13.4 (12.9-16.9) g/dL Hct 39.8 (37.5-50.1) % Plt Count 104 L (140-400) K/mcL BMP 06/25/18 04:29 Sodium 138 Potassium 3.6 Chloride 106 Carbon Dioxide 24 BUN 16 Creatinine 0.75 Glucose 101 Calcium 8.8 Liver Function 06/25/18 Range/Units 04:29 Total Bilirubin 0.9 (0.3-1.0) mg/dL Direct Bilirubin 0.0 (0.0-0.2) mg/dL AST 37 (13-39) Units/L ALT 19 (7-52) Units/L Alkaline Phosphatase 88 (34-104) Units/L Albumin 3.3 L (3.5-5.7) g/dL - ABG Interpretation ABG results: PT/INR, D-dimer PT 14.4 Seconds (9.4-12.1) H 06/25/18 04:29 - Impressions Impressions Echocardiogram 06/24/18 14:41 Impressions: Normal LV size and systolic function. LVEF= 70 %. Mild concentric VH. Mild diastolic dysfunction. Mildly dilated left atrium . Normal RV size and function. No hemodynamically significant valvular abnormality. Findings: Study Quality * Technically adequate exam. ECG Findings * Normal sinus rhythm. Left Ventricle * LVEF 70%. * Mild concentric left ventricular hypertrophy. * Mild left ventricular diastolic dysfunction. Right Ventricle * Normal right ventricular structure and function. Left Atrium * Mildly dilated left atrium. Right Atrium * Normal right atrial size. Aortic Valve * Trileaflet aortic valve. * Mildly sclerotic aortic valve leaflets. Mitral Valve * Normal mitral valve structure and function. Tricuspid Valve * Normal tricuspid valve structure and function. Pulmonic Valve * Pulmonic valve not well visualized. Aorta * Normally sized aortic root. Pericardium * The pericardium appears normal. IVC * The IVC is not well evaluated. Abdomen CT 06/24/18 15:00 IMPRESSION: Cnsbkygq-xg-clrow hiatal hernia without evidence of wall thickening of the stomach. A small amount of fluid can be seen in the hernia sac. Liver nodularity consistent with cirrhosis. Mild fat containing ventral hernia which appears uncomplicated. Suggestion of left colonic thickening consistent with mild colitis. D/ / 06/24/2018 16:15:17 Shira Garcia MD / [email or web address] Interpreting Provider: Shira Garcia MD Consult Discharge Plan - Plan Referrals: Lazaro Estes DO [Primary Care Provider] - 07/01/18 11:30 am () (2) COPD (chronic obstructive pulmonary disease) Qualifiers: COPD type: unspecified COPD Qualified Code(s): J44.9 - Chronic obstructive pulmonary disease, unspecified (3) CAD (coronary artery disease) Qualifiers: Coronary Disease-Associated Artery/Lesion type: bypass graft [place] vs. transplanted heart: [place] heart Associated angina: with stable angina Qualified Code(s): I25.708 - Atherosclerosis of coronary artery bypass graft(s) , unspecified, with other forms of angina pectoris (4) GERD (gastroesophageal reflux disease) Qualifiers: Esophagitis presence: without esophagitis Qualified Code(s): K21.9 - Gastro- esophageal reflux disease without esophagitis (6) Cirrhosis Qualifiers: Hepatic cirrhosis type: unspecified hepatic cirrhosis Ascites presence: with ascites Qualified Code(s): K74.60 - Unspecified cirrhosis of liver; R18.8 - Other ascites
[2018-06-25] MEDS: Ipratropium Neb 0.5 MG NEBULIZER IH SCH ×4 (15:19→23:22)
[2018-06-26 03:47] LABS: Hematocrit 38.8 % (37.5-50.1); Hemoglobin 13.3 g/dL (12.9-16.9); Mean Corpuscular HGB Conc 34.3 g/dL (31.6-35.5); Mean Corpuscular Hemoglobin 33.5 pg (28.0-33.3); Mean Corpuscular Volume 97.7 fL (83.0-100.0); Mean Platelet Volume 10.4 fL (9.4-12.4); Platelet Count 100 K/mcL (140-400); Red Blood Count 3.97 M/mcL (4.19-5.50); Red Cell Distribution Width 13.5 % (11.5-14.5)
[2018-06-26 04:00] LABS: BUN/Creatinine Ratio 24 (6-26); Blood Urea Nitrogen 21 mg/dL (8-23); Calcium 8.7 mg/dL (8.6-10.3); Carbon Dioxide 25 mEq/L (23-29); Chloride 108 mEq/L (98-107); Glucose 106 mg/dL (70-105); Osmolality,Calculated 291 (280-300); Potassium 3.9 mEq/L (3.5-5.1); Sodium 139 mEq/L (136-145); eGFR For Non-African Americans > 60 (> 60)
[2018-06-26] MEDS: Ipratropium Neb 0.5 MG NEBULIZER IH SCH ×4 (04:35→15:39)
[2018-06-26] MEDS: *HR* Enoxaparin 40 MG/0.4 ML SYRINGE SQ SCH (05:58)
[2018-06-26] MEDS ORDERED: Propofol 500 MG/50 ML INFUS..BTL ONE ×2 (07:18→09:15)
[2018-06-26] MEDS ORDERED: Lidocaine -MPF 2% 2 ML VIAL ONE ×2 (07:19→09:15)
--- NOTE | 2018-06-26 08:07 | Anesthesia Evaluation PreOp ---
<Glo Merritt Yokasta - Last Filed: 06/26/18 09:43> Date of Encounter: 06/26/18 Time of Encounter: 09:26 - Past History VISUAL DESIGNER History: Other (Dementia) Anesthesia History: Past Anesthesia ([place], Colectomy [2015], CABG, Hernia repair) Medications and Allergies Aspirin 81 mg PO DAILY 07/22/17 [History] Cholecalciferol (Vitamin D3) [Vitamin D3] 1,000 unit PO DAILY 07/22/17 [History] Cyanocobalamin (Vitamin B-12) [Vitamin B-12] 2,000 mcg PO DAILY 07/22/17 [ History] Ferrous Sulfate [Slow Fe] 142 mg PO DAILY 07/22/17 [History] Omeprazole [PriLOSEC] 20 mg PO BIDAC 07/22/17 [History] Rosuvastatin [Crestor] 40 mg PO HS 07/22/17 [History] Sucralfate [Carafate] 1 gm PO QIDAC #40 tablet 07/22/17 [Rx] Ubidecarenone/Vit E/Vit E Mix [Co-Enzyme Q10 100 mg Softgel] 200 mg PO DAILY [History] Ipratropium [place] 1 spr NS BID 06/24/18 [History] Metoprolol XL (24 HR) Succ [Toprol Xl] 12.5 mg PO DAILY 06/24/18 [History] Furosemide [Lasix] 10 mg PO DAILY 3 Days #3 tablet 06/26/18 [Rx] Ranolazine [Ranexa] 500 mg PO BID 30 Days #60 tab.er.12h 06/26/18 [Rx] 3 Allergy/AdvReac Type Severity Reaction Status Date / Time isosorbide Allergy Palpitation Verified 06/23/18 09:31 s shellfish derived Allergy Flushing Verified 06/23/18 09:31 Anesthesia Results - Labs 06/26/18 02:54 06/26/18 02:[address] 06/24/18 15:00 IMPRESSION: [id number] hiatal hernia without evidence of wall thickening of the stomach. A small amount of fluid can be seen in the hernia sac. Liver nodularity consistent with cirrhosis. Mild fat containing ventral hernia which appears uncomplicated. Suggestion of left colonic thickening consistent with mild colitis. D/ / 06/24/2018 16:15:17 Shira Garcia MD / [email or web address] Interpreting Provider: Shira Garcia MD Anesthesia Exam Vital Signs Temp Pulse Resp BP Pulse Ox 06/26/18 09:18 97.6 F 78 18 119/87 91 06/26/18 07:45 97.5 F L 82 18 129/85 92 06/26/18 04:35 16 94 06/26/18 03:33 97.7 F 68 16 160/89 91 06/25/18 23:43 98.1 F 66 16 88/48 90 06/25/18 23:22 16 96 06/25/18 19:51 16 96 06/25/18 19:41 98.2 F 74 16 104/63 90 06/25/18 15:40 97.5 F L 79 18 110/68 92 06/25/18 11:20 97.6 F 70 17 143/81 94 Intake and Output 06/25/18 06/26/18 06/26/18 23:59 07:59 15:59 Other: Weight 98 kg Patient Weight 06/26/18 23:59 Weight 98 kg Height: 5'10" Weight: 216# BMI = 31 - HEENT Pupil (Motor): Pupils equal, EOMI Mallampati: II Teeth: Edentulous Oral Opening: Greater than 3 - VISUAL DESIGNER LOC: Oriented VISUAL DESIGNER Motor: Normal RUE, Normal LUE, Normal RLE, Normal LLE, Normal Face VISUAL DESIGNER Sensory: Normal: RUE, LUE, RLE, LLE, Face - Cardiac Rhythm: Regular Murmur: None - Pulmonary Breath Sounds: bilateral Clear Respiratory Effort: Symmetrical <Barron Cheema - Last Filed: 06/28/18 07:12> Date of Encounter: 06/28/18 - Past History Planned Operation: EGD Cardiac History: Cardiac Surgery (3V CABG 2000) Pulmonary History: COPD (with restrictive airway disease) Other Medical History: Hepatic (cirrhosis), GERD, Other (hiatal hernia) Alcohol Use: none Drug use: none - Meds/Allergy Pre-op Review Medications Reviewed: Yes Allergies Reviewed: Yes Beta Blockers on Current Med List: No Anesthesia Results - Labs 06/26/18 02:54 06/26/18 02:54 - Imaging EKG: report reviewed, image reviewed Additional studies: Echo Impressions: Normal LV size and systolic function. LVEF= 70 %. Mild concentric VH. Mild diastolic dysfunction. Mildly dilated left atrium . Normal RV size and function. No hemodynamically significant valvular abnormality. Findings: Study Quality * Technically adequate exam. ECG Findings * Normal sinus rhythm. Left Ventricle * LVEF 70%. * Mild concentric left ventricular hypertrophy. * Mild left ventricular diastolic dysfunction. Right Ventricle * Normal right ventricular structure and function. Left Atrium * Mildly dilated left atrium. Right Atrium * Normal right atrial size. Aortic Valve * Trileaflet aortic valve. * Mildly sclerotic aortic valve leaflets. Mitral Valve * Normal mitral valve structure and function. Tricuspid Valve * Normal tricuspid valve structure and function. Pulmonic Valve * Pulmonic valve not well visualized. Aorta * Normally sized aortic root. Pericardium * The pericardium appears normal. IVC * The IVC is not well evaluated. Anesthesia Assess/Plan ASA Score: 3 Modified [place] Scale for Level of Consciousness: Cooperative, oriented, and tranquil Anesthetic Plan: MAC Monitoring Plan: Standard Monitors Recovery Plan: PACU
[2018-06-26] MEDS: VIT E MIX PO SCH (08:27)
[2018-06-26] MEDS: UBIDECARENONE PO SCH (08:27)
[2018-06-26] MEDS: VIT E PO SCH (08:27)
[2018-06-26] MEDS: (Ipratropium Bromide [Ipratropium Bromide] 1 SPR) NS SCH (08:27)
[2018-06-26] MEDS ORDERED: Fluticasone Propionate Nasal 50 MCG/SPRAY BOTTLE NS SCH (09:00)
[2018-06-26] MEDS ORDERED: Simethicone 40 MG/0.6 ML MLS IR ONE (10:01)
[2018-06-26] MEDS ORDERED: Tetracaine/Benzocaine/Butamben 200MG/SPRAY (100SPY/BOT) MM ONE (10:01)
[2018-06-26] MEDS: Sucralfate 1 GM TABLET PO SCH ×2 (12:15→12:22)
[2018-06-26] MEDS: Furosemide 20 MG/2 ML VIAL IVP SCH (12:20)
[2018-06-26] MEDS: Metoprolol XL (24 HR) Succ 25 MG TAB.ER.24H PO SCH (12:21)
[2018-06-26] MEDS: Aspirin 81 MG TAB.CHEW PO SCH (12:21)
[2018-06-26] MEDS: Ranolazine 500 MG TAB.ER.12H PO SCH (12:23)
--- NOTE | 2018-06-26 14:27 | Discharge Summary ---
- NOTES TO OUTPATIENT PROVIDER Notes to Outpatient Provider: admitted with CHF, responded to diuresis. Discussed with patient low sodium diet, monitoring weight and fluid intake as well as output. Found to have moderate to large hiatal hernia. Is to have follow-up with GI for esophageal dilation as well. Please ensure follow-up with GI Orders not resulted at time of discharge: Pending orders 06/27/18 04:00 BMP [Basic Metabolic Panel] AM 0400 Complete Blood Count w/o Diff [HEME] AM 04006/28/18 04:00 BMP [Basic Metabolic Panel] AM 0400 Complete Blood Count w/o Diff [HEME] AM 04006/29/18 04:00 BMP [Basic Metabolic Panel] AM 0400 Complete Blood Count w/o Diff [HEME] AM 0400 Date of Encounter: 06/26/18 Time of Encounter: 14:22 - Discharge Diagnosis (1) Hiatal hernia Priority: Secondary Status: Acute (2) COPD (chronic obstructive pulmonary disease) Priority: Primary Status: Acute Qualifiers: COPD type: unspecified COPD Qualified Code(s): J44.9 - Chronic obstructive pulmonary disease, unspecified (3) CAD (coronary artery disease) Priority: Secondary Status: Acute Qualifiers: Coronary Disease-Associated Artery/Lesion type: bypass graft [place] vs. transplanted heart: [place] heart Associated angina: without angina Qualified Code(s): I25.810 - Atherosclerosis of coronary artery bypass graft(s) without angina pectoris (4) Acute diastolic (congestive) heart failure Priority: Primary Status: Acute (5) GERD (gastroesophageal reflux disease) Priority: Secondary Status: Acute Qualifiers: Esophagitis presence: without esophagitis Qualified Code(s): K21.9 - Gastro -esophageal reflux disease without esophagitis (6) Cirrhosis Priority: Secondary Status: Acute Qualifiers: Hepatic cirrhosis type: unspecified hepatic cirrhosis Ascites presence: with ascites Qualified Code(s): K74.60 - Unspecified cirrhosis of liver; R18.8 - Other ascites (7) Weakness Priority: Secondary Status: Acute Hospital course: Mr. Canchola is a 88 year old male who was admitted with worsening shortness of breath and chest pressure. Cardiac workup was unremarkable with negative EKG, cardiac enzymes. Given patient's comorbid his advanced age left heart catheter was not pursued, stress test not completed his family opted for medical management. Per recommendations of cardiology patient is being sent home with prescriptions for aspirin, statin, beta ky and Ranexa. During the stay the patient was found to have a moderate to large hiatal hernia and has a follow -up with gastroenterology in 2-3 weeks. He is also found to have stenosis and follow-up should be scheduled for esophageal dilation. He has had an uneventful hospital course and has had a positive response to diuresis with weight decreasing from 105 kg to 98 kg in a net negative fluid volume of 1475 at time of discharge. He was able to ambulate around the unit on room air with SPO2 dropping to a low of 91% but immediately rebounding to appropriate levels of 92-93% additionally, he is being discharged on a 3 day dose of oral Lasix at 10 mg daily. Has been given education on strict I's and O monitoring, daily weight monitoring and low-sodium diet. Please reevaluate understanding. Has been instructed to return to the ED should chest pain, shortness of breath and/ or bilateral lower extremity swelling return. He does have an underlying component of dementia so these instructions are also being relayed to his family members. Discharge discussed with: patient, nurse - Time Spent with Patient Total time spent providing and/or coordinating discharge services: Less than 30 minutes - Discharge Medications Prescriptions: Ranolazine [Ranexa] 500 mg PO BID 30 Days #60 tab.er.12h Home Medications: Aspirin 81 mg PO DAILY 07/22/17 [History] Cholecalciferol (Vitamin D3) [Vitamin D3] 1,000 unit PO DAILY 07/22/17 [History] Cyanocobalamin (Vitamin B-12) [Vitamin B-12] 2,000 mcg PO DAILY 07/22/17 [ History] Ferrous Sulfate [Slow Fe] 142 mg PO DAILY 07/22/17 [History] Omeprazole [PriLOSEC] 20 mg PO BIDAC 07/22/17 [History] Rosuvastatin [Crestor] 40 mg PO HS 07/22/17 [History] Sucralfate [Carafate] 1 gm PO QIDAC #40 tablet 07/22/17 [Rx] Ubidecarenone/Vit E/Vit E Mix [Co-Enzyme Q10 100 mg Softgel] 200 mg PO DAILY [History] Ipratropium [place] 1 spr NS BID 06/24/18 [History] Metoprolol XL (24 HR) Succ [Toprol Xl] 12.5 mg PO DAILY 06/24/18 [History] Furosemide [Lasix] 10 mg PO DAILY 3 Days #3 tablet 06/26/18 [Rx] Ranolazine [Ranexa] 500 mg PO BID 30 Days #60 tab.er.12h 06/26/18 [Rx] Allergies/Adverse Reactions: 3 Allergy/AdvReac Type Severity Reaction Status Date / Time isosorbide Allergy Palpitation Verified 06/23/18 09:31 s shellfish derived Allergy Flushing Verified 06/23/18 09:31 Date of admission: 06/25/18 18:40 Primary care physician: Lazaro Etses DO Consults: 06/24/18 13:31 Consult to Cardiology [CONS] Routine Comment: Per hospitalist Consulting Provider: Cardiology Emy Reason for Consult: chest pain Call Completed: Yes 06/24/18 15:45 Consult to Gastroenterology [CONS] Routine Consulting Provider: Gastroenterology Emy Reason for Consult: Large hiatal hernia Call Completed: Yes 06/25/18 11:57 Consult to Physical Therapy [CONS] Routine Comment: Evaluate, develop and implement POC Reason for Consult: weakness, trouble walking Does patient have active BEDREST order?: No Is patient medically & hemodynamically stable?: Yes Patient assessed for mobility or mobilized this visit?: Yes Discharging clinician: Don Vera Anticipated date of discharge: 06/26/18 - Constitutional Vitals: Temp Pulse Resp BP Pulse Ox 97.6 F 78 20 119/87 94 06/26/18 09:18 06/26/18 09:18 06/26/18 11:08 06/26/18 09:18 06/26/18 11:08 General appearance: Present: A&O X 3, pleasant, no acute distress Exam: PHYSICAL EXAMINATION: GENERAL: The patient is a well-developed, elderly male in no apparent distress. He is alert and oriented x3. HEENT: Head is normocephalic and atraumatic. Extraocular muscles are intact. Pupils are equal, round, and reactive to light and accommodation. Nares appeared normal. Mouth is well hydrated and without lesions. Mucous membranes are moist. Posterior pharynx clear of any exudate or lesions. NECK: Supple. No carotid bruits. No lymphadenopathy or thyromegaly. LUNGS: Clear/diminished to auscultation. he is without tachypnea or conversational dyspnea HEART: Regular rate and rhythm, S1, S2 without murmur. ABDOMEN: Soft, nontender, and nondistended. Positive bowel sounds. No hepatosplenomegaly was noted. EXTREMITIES: Without any cyanosis, clubbing, rash, lesions or edema. NEUROLOGIC: Cranial nerves II through XII are grossly intact. PSYCHIATRIC: Flat affect, but denies suicidal or homicidal ideations. SKIN: No ulceration or induration present. - Patient Status Disposition: Home, Self-Care Condition: Good Functional capacity at discharge: independent ambulation Overall status at discharge: patient is progressing back to baseline - Discharge Instructions Instructions: Heart Failure (DC), Chronic Obstructive Pulmonary Disease (DC) Follow Up With: Lazaro Estes DO [Primary Care Provider] - 07/01/18 11:30 am () - Diet and Activity Activity: increase activity as tolerated, resume usual activities as tolerated Diet: advance to your usual diet
[2018-06-26 15:55] VITALS: BP 120/74
--- NOTE | 2018-06-28 07:10 | Anesthesia Evaluation Post Op ---
Date of Encounter: 06/26/18 Time of Encounter: 10:40 - Vital Signs Vital Signs: Vital Signs/O2 Sat/Glucose, Most Recent Temp Pulse Resp BP Pulse Ox 97.7 F 81 20 120/74 93 06/26/18 13:00 06/26/18 13:00 06/26/18 15:39 06/26/18 13:00 06/26/18 15:39 - Lungs Lungs: Clear Ascult./Percussion - Airway Airway: Non-obstructed - Cardiovascular Regular Rate - Mental Status Mental Status: Alert & Oriented, Answers Appropriately - Nausea Vomiting Nausea Vomiting: Not Present - Hydration Hydration: NPO - Discharge PostOp Status: Transfer Patient to floor
== END 2018-06-26 16:01 | disposition home or self-care (01) | DRG 292 ==
LOC: 3BNU
PROVIDERS: ADMIT Internal Medicine; ATTEND Internal Medicine
PROC: ENDOEBX (2018-06-26 08:50)

== ENCOUNTER 2018-10-15 21:17 | Observation (INO) ==
[2018-10-16] MEDS ORDERED: 0.9 % Sodium Chloride 1,000 ML IVC ONE (02:01)
[2018-10-16 02:54] LABS: Hematocrit 36.8 % (37.5-50.1); Immature Platelets 2.3 % (1.1-6.1); Mean Corpuscular HGB Conc 32.6 g/dL (31.6-35.5); Mean Corpuscular Volume 98.1 fL (83.0-100.0); Mean Platelet Volume 10.8 fL (9.4-12.4); Red Blood Count 3.75 M/mcL (4.19-5.50); Red Cell Distribution Width 13.4 % (11.5-14.5)
[2018-10-16 03:12] LABS: Alanine Aminotransferase 24 Units/L (7-52); Albumin/Globulin Ratio 1.2 (1.1-2.2); Alkaline Phosphatase 102 Units/L (34-104); Aspartate Amino Transferase 40 Units/L (13-39); BUN/Creatinine Ratio 20 (6-26); Bilirubin,Total 0.8 mg/dL (0.3-1.0); Blood Urea Nitrogen 17 mg/dL (8-23); Calcium 8.9 mg/dL (8.6-10.3); Carbon Dioxide 25 mEq/L (23-29); Chloride 108 mEq/L (98-107); Globulin 2.5 g/dL (2.4-3.5); Glucose 115 mg/dL (70-105); Osmolality,Calculated 286 (280-300); Sodium 137 mEq/L (136-145); Total Protein 5.5 g/dL (6.4-8.9); eGFR For Non-African Americans > 60 (> 60)
[2018-10-16] MEDS ORDERED: Naloxone 0.4 MG/ML INJ IVP PRN (06:42)
--- NOTE | 2018-10-16 08:09 | Internal Med History&Physical ---
Date of Encounter: 10/16/18 Time of Encounter: 05:00 Internal Medicine - H&P: HPI Chief complaint: Heart arrhythmia Admitted From: Hospital to Hospital Transfer History of present illness: Mr. Canchola is a 88 year old male Patient presented to the ER in [place] for elevated heart rate. He states that he was out washing his car, went in side because he felt like he was getting tired. Checked his pulse and O2 saturation with a home monitoring device, and noted his heart rate was 160. His brought him an aspirin, and his heart rate improved. It then increased again, then reduced. This continued, and concerned him and he therefore went to an urgent care for further evaluation. They had confirmed his elevated heart rate, and he was again transported to [place] ER for management. Patient remained asymptomatic during the event. In the ER, patient's CBC showed a platelet count of 104 (near baseline secondary to cirrhosis) and normal BMP. Troponin was elevated at 0.07, improving to 0.06 on recheck. Patient is not on home oxygen. Chest xray showed no acute processes. His initial heart rate was noted to be SVT, and he was given a total of 2 doses of adenosine 6mg. His heart rate improved and sustained in NSR. Patient has not had an elevation since. He was transferred to [place] for further management. Upon my assessment, patient denies chest pain, abdominal pain, nausea, vomiting, diarrhea and constipation. He has no further complaints. Past Med Surg Social Fam HX - Past Medical History Medical history: COPD, coronary artery disease, GERD, other Psychiatric history: no psych history - Past Surgical History Surgical History: cholecystectomy, colectomy, coronary bypass (CABG), herniorrhaphy Additional surgical history: colon surgery about 3 years ago, portion of colon removed - Social History Smoking Status: Never smoker Smokeless Tobacco Status: No Alcohol use: none Drug use: none - Family History Father Living Status: Age at : 70 Hx Family Cardiac Disorders: Yes (CHF/ heart attack) Mother Living Status: Age at : 82 Hx Family Cancer: Yes (leukemia) Internal Medicine - H&P: Meds Aspirin 81 mg PO DAILY 07/22/17 [History] Cholecalciferol (Vitamin D3) [Vitamin D3] 1,000 unit PO DAILY 07/22/17 [History] Cyanocobalamin (Vitamin B-12) [Vitamin B-12] 2,000 mcg PO DAILY 07/22/17 [History] Ferrous Sulfate [Slow Fe] 142 mg PO DAILY 07/22/17 [History] Omeprazole [PriLOSEC] 20 mg PO BIDAC 07/22/17 [History] Rosuvastatin [Crestor] 40 mg PO HS 07/22/17 [History] Sucralfate [Carafate] 1 gm PO QIDAC #40 tablet 07/22/17 [Rx] Ubidecarenone/Vit E/Vit E Mix [Co-Enzyme Q10 100 mg Softgel] 200 mg PO DAILY 07/22/17 [History] Ipratropium [place] 1 spr NS BID 06/24/18 [History] Metoprolol XL (24 HR) Succ [Toprol Xl] 12.5 mg PO DAILY 06/24/18 [History] Furosemide [Lasix] 10 mg PO DAILY 3 Days #3 tablet 06/26/18 [Rx] Ranolazine [Ranexa] 500 mg PO BID 30 Days #60 tab.er.12h 06/26/18 [Rx] Allergy/AdvReac Type Severity Reaction Status Date / Time isosorbide Allergy Palpitation Verified 10/15/18 16:12 s shellfish derived Allergy Flushing Verified 10/15/18 16:12 All Systems PM: A 10-system review of systems was performed and is negative for pertinent findings except as documented above in the HPI. - Constitutional Vitals: Temp Pulse Resp BP Pulse Ox 97.8 F 58 16 110/64 95 10/16/18 03:25 10/16/18 03:25 10/16/18 03:25 10/16/18 03:25 10/16/18 03:25 General appearance: Present: cooperative, A&O X 3, pleasant, no acute distress, answers questions appropriately Exam: As above - Head Head exam: Present: normal inspection - Eye Eye exam: Present: EOMI, normal appearance - Respiratory Respiratory exam: Present: CTAB. Absent: respiratory distress, wheezes - Cardiovascular Cardiovascular exam: Present: RRR. Absent: diastolic murmur, systolic murmur - GI/Abdominal GI/Abdominal exam: Present: normal bowel sounds, soft. Absent: tenderness - Extremities Exam Extremities exam: Present: warm, radial pulses palpable and symmetrical. Absent: calf tenderness, pedal edema, tenderness - Neurological Exam Neurological exam: Present: no focal deficits, strengths equal and symetr throughout. Absent: motor sensory deficit, facial droop, speech deficit - Skin Skin exam: Present: dry, normal color, warm Internal Med - H&P Results - Labs CBC & Chem 7: 10/16/18 02:43 10/16/18 02:43 Labs: Short CBC 10/16/18 Range/Units 02:43 WBC 3.6 L (4.3-11.1) K/mcL Hgb 12.0 L (12.9-16.9) g/dL Hct 36.8 L (37.5-50.1) % Plt Count 84 L (140-400) K/mcL BMP 10/16/18 02:43 Sodium 137 Potassium 4.0 Chloride 108 H Carbon Dioxide 25 BUN 17 Creatinine 0.87 Glucose 115 H Calcium 8.9 Cardiac Enzymes 10/16/18 Range/Units 02:43 Troponin I 0.07 H* (< 0.04) ng/mL Liver Function 10/16/18 Range/Units 02:43 Total Bilirubin 0.8 (0.3-1.0) mg/dL AST 40 H (13-39) Units/L ALT 24 (7-52) Units/L Alkaline Phosphatase 102 (34-104) Units/L Albumin 3.0 L (3.5-5.7) g/dL - Assessment and plan (1) Supraventricular tachycardia Current Visit: No Status: Acute Assessment and plan: Now resolved after 2 doses of adenosine given at [place] ER. Patient has remained in sinus rhythm since. Cardiac monitoring Continue to trend troponin Echocardiogram in the AM. (2) Elevated troponin Current Visit: No Status: Acute Assessment and plan: Elevated initially at 0.07, decreased to 0.06 then increased again to 0.07. Patient denies chest pain. EKG showed no acute ischemic changes. Patient has had elevated troponins in the past as well. Continue to trend troponin Echocardiogram in the morning Cardiac monitoring. (3) Thrombocytopenia Current Visit: Yes Status: Acute Assessment and plan: Patient has a history of cirrhosis. Platelet count less than previous, no evidence of bleeding. Hemoglobin stable. Continue to monitor. Avoid heparin for DVT prophylaxis (4) DVT prophylaxis Current Visit: Yes Status: Acute Assessment and plan: SCDs - Time Spent With Patient Total time spent is greater than 50% in coordination of care (as documented) at patient's floor/unit and/or counseling patient: Greater than 35 minutes
[2018-10-16] MEDS: Aspirin 81 MG TAB.CHEW PO SCH (08:43)
--- NOTE | 2018-10-16 09:38 | Internal Med Progress Note ---
Hospitalist Progress Note - Encounter Date of Encounter: 10/16/18 Time of Encounter: 09:35 - Subjective Interval History: Admitted from [facility] with SVT. This occurred while patient was washing his car. Patient was given 2 doses of adenosine 6 mg as heart rate is now normal sinus rhythm. He reports that this does happen from time to time with activity and he has had cardiology evaluation in the past. - Exam Vitals: Temp Pulse Resp BP Pulse Ox 98.0 F 59 16 155/77 94 10/16/18 08:26 10/16/18 08:26 10/16/18 08:26 10/16/18 08:26 10/16/18 08:26 Exam: PHYSICAL EXAMINATION: GENERAL: The patient is an elderly male, NAD, and O 3 HEENT: Head is normocephalic and atraumatic. EOMI, PERRLA NECK: Supple. No carotid bruits. No lymphadenopathy or thyromegaly. LUNGS: Clear to auscultation B/L AP and L. HEART: Regular rate and rhythm, S1, S2 without murmur. ABDOMEN: Soft, nontender, and nondistended. Positive bowel sounds. No hepatosplenomegaly was noted. EXTREMITIES: Without any cyanosis, clubbing, rash, lesions or edema. - Assessment and Plan (1) Supraventricular tachycardia Current Visit: No Status: Resolved Assessment and Plan: History of SVT; presented with SVT which resolved after 2 doses of adenosine given at [place] [facility] No events on telemetry since arrival to [facility] Troponins found to be elevated on arrival at 0.07 and decreased to 0.06 and back to 0.07; these have remained adynamic and the patient is without chest pain. additionally, he does have chronic troponin elevations Plan Continue closely monitor on telemetry Obtain echocardiogram EPCD's for DVT prophylaxis; avoid heparin due to thrombus cytopenia (2) Thrombocytopenia Current Visit: Yes Status: Acute Assessment and Plan: Per history Without evidence of bleeding Does not history cirrhosis The patient remained overnight check CBC in the morning (3) Elevated troponin Current Visit: No Status: Acute - Time Spent with Patient Total time spent is greater than 50% in coordination of care (as documented) at patient's floor/unit and/or counseling patient: less than 15 minutes Plan of Care Discussed with: patient Internal Medicine: Result - Labs CBC & Chem 7: 10/16/18 02:43 10/16/18 02:43 Labs: Short CBC 10/16/18 Range/Units 02:43 WBC 3.6 L (4.3-11.1) K/mcL Hgb 12.0 L (12.9-16.9) g/dL Hct 36.8 L (37.5-50.1) % Plt Count 84 L (140-400) K/mcL BMP 10/16/18 02:43 Sodium 137 Potassium 4.0 Chloride 108 H Carbon Dioxide 25 BUN 17 Creatinine 0.87 Glucose 115 H Calcium 8.9 Cardiac Enzymes 10/16/18 Range/Units 02:43 Troponin I 0.07 H* (< 0.04) ng/mL Liver Function 10/16/18 Range/Units 02:43 Total Bilirubin 0.8 (0.3-1.0) mg/dL AST 40 H (13-39) Units/L ALT 24 (7-52) Units/L Alkaline Phosphatase 102 (34-104) Units/L Albumin 3.0 L (3.5-5.7) g/dL Consult Discharge Plan - Plan Referrals: Lazaro Estes DO [Primary Care Provider] -
[2018-10-17 05:09] LABS: Basophils % 0.2 %; Eosinophils # 0.2 K/mcL (0.0-0.6); Eosinophils % 4.4 %; Hematocrit 38.6 % (37.5-50.1); Hemoglobin 12.7 g/dL (12.9-16.9); Immature Granulocytes % 0.4 % (0-4); Lymphocytes # 1.1 K/mcL (0.6-4.6); Mean Corpuscular HGB Conc 32.9 g/dL (31.6-35.5); Mean Corpuscular Hemoglobin 32.2 pg (28.0-33.3); Mean Corpuscular Volume 97.7 fL (83.0-100.0); Mean Platelet Volume 10.7 fL (9.4-12.4); Monocytes # 0.6 K/mcL (0.0-1.3); Monocytes % 10.6 %; Neutrophils # 3.3 K/mcL (1.6-8.9); Platelet Count 105 K/mcL (140-400); Red Blood Count 3.95 M/mcL (4.19-5.50); Red Cell Distribution Width 13.2 % (11.5-14.5); Segmented Neutrophils % 63.4 %
[2018-10-17 05:28] LABS: BUN/Creatinine Ratio 33 (6-26); Blood Urea Nitrogen 24 mg/dL (8-23); Carbon Dioxide 24 mEq/L (23-29); Chloride 110 mEq/L (98-107); Glucose 108 mg/dL (70-105); Osmolality,Calculated 293 (280-300); Potassium 4.5 mEq/L (3.5-5.1); Sodium 139 mEq/L (136-145); eGFR For Non-African Americans > 60 (> 60)
[2018-10-17] MEDS: Aspirin 81 MG TAB.CHEW PO SCH (09:11)
[2018-10-17] MEDS ORDERED: Ibuprofen 200 MG TABLET PO PRN (10:05)
[2018-10-17] MEDS ORDERED: Metoprolol XL (24 HR) Succ 25 MG TAB.ER.24H PO SCH (10:15)
[2018-10-17] MEDS ORDERED: Budesonide/Formoterol 80/4.5 MDI IH SCH (10:15)
[2018-10-17] MEDS ORDERED: Isosorbide MONOnitrate (24 HR) 30 MG TAB.ER.24H PO SCH (10:15)
[2018-10-17] MEDS ORDERED: Cyanocobalamin (B-12) 1,000 MCG TABLET PO SCH (10:15)
[2018-10-17] MEDS ORDERED: Cholecalciferol (D-3) 1,000 UNIT TABLET PO SCH (10:15)
[2018-10-17] MEDS ORDERED: Furosemide 20 MG TABLET PO SCH (10:15)
[2018-10-17] MEDS ORDERED: Sucralfate 1 GM TABLET PO SCH (11:30)
--- NOTE | 2018-10-17 11:39 | Discharge Summary ---
- NOTES TO OUTPATIENT PROVIDER Notes to Outpatient Provider: F/U WITH PCP X1 WEEK; F/U WITH CARDIOLOGY. PATIENT WILL BENEFIT FROM EVENT MONITOR FOR SVT Orders not resulted at time of discharge: Pending orders 10/18/18 04:00 Basic Metabolic Panel AM 0400 Complete Blood Count [HEME] AM 0400 10/19/18 04:00 Basic Metabolic Panel AM 0400 Complete Blood Count [HEME] AM 0400 Date of Encounter: 10/17/18 Time of Encounter: 11:37 - Discharge Diagnosis (1) Supraventricular tachycardia Priority: Primary Status: Resolved Assessment and Plan: NO RETURN OF SVT DURING STAY NO EVENTS ON TELE (2) Thrombocytopenia Priority: Secondary Status: Acute (3) Elevated troponin Priority: Secondary Status: Acute Hospital course: Mr. Canchola is a 88 year old male who was admitted from [facility] after having an episode of SVT. He was given 2 doses of adenosine and converted. He has had no return of events throughout stay. He has been able to ambulate around the unit with difficulty or return of arrhythmia. He noted that is seemed to occur with over exertion. He has had this in the past and he reports that he has been Rx metoprolol for these episodes. Unfortunately, I do not believe that his BP would tolerate in increase in his BB dosing. He may benefit from an event monitor in the outpatient setting; I will request a cardio f/u appt and defer to their team regarding medication titration and further workup. The patient is hemodynamically stable and is back to baseline. He has been instructed to return to the ED should his symptoms recur. Discharge discussed with: patient, nurse - Time Spent with Patient Total time spent providing and/or coordinating discharge services: Less than 30 minutes - Discharge Medications Home Medications: Aspirin 81 mg PO DAILY 07/22/17 [History] Cholecalciferol (Vitamin D3) [Vitamin D3] 1,000 unit PO DAILY 07/22/17 [History] Omeprazole [PriLOSEC] 20 - 40 mg PO TIDAC 07/22/17 [History] Rosuvastatin [Crestor] 40 mg PO DAILY 07/22/17 [History] Ubidecarenone/Vit E/Vit E Mix [Co-Enzyme Q10 100 mg Softgel] 200 mg PO DAILY 07/22/17 [History] Metoprolol XL (24 HR) Succ [Toprol Xl] 12.5 mg PO DAILY 06/24/18 [History] Furosemide [Lasix] 10 mg PO DAILY 3 Days #3 tablet 06/26/18 [Rx] Acetaminophen [Tylenol] 325 mg PO DAILY PRN 10/16/18 [History] Budesonide/Formoterol 80/4.5 [Symbicort 80/4.5] 2 puff IH DAILY 10/16/18 [History] Cyanocobalamin (Vitamin B-12) [Vitamin B12] 2,500 mcg PO DAILY 10/16/18 [History] Ferrous Sulfate [Slow Fe] 142 mg PO DAILY 10/16/18 [History] Fluticasone Propionate Nasal [Flonase] 2 spray NS DAILY 10/16/18 [History] Ibuprofen [Ibu-200] 200 mg PO DAILY PRN 10/16/18 [History] Isosorbide MONOnitrate [Isosorbide Mononitrate ER] 30 mg PO DAILY 10/16/18 [History] Sucralfate [Carafate] 1 gm PO TIDAC 10/16/18 [History] Allergies/Adverse Reactions: Allergy/AdvReac Type Severity Reaction Status Date / Time isosorbide AdvReac Palpitation Unverified 10/16/18 10:42 s shellfish derived AdvReac [place] Verified 10/16/18 10:42 Date of admission: 10/15/18 22:42 Primary care physician: Lazaro Estes DO Discharging clinician: Don Vera Anticipated date of discharge: 10/17/18 - Constitutional Vitals: Temp Pulse Resp BP Pulse Ox 97.8 F 79 16 107/57 95 10/17/18 08:05 10/17/18 08:05 10/17/18 11:36 10/17/18 08:05 10/17/18 11:36 General appearance: Present: cooperative, A&O X 3, pleasant, no acute distress, answers questions appropriately Exam: PHYSICAL EXAMINATION: GENERAL: The patient is an elderly male, NAD, and O 3 HEENT: Head is normocephalic and atraumatic. EOMI, PERRLA NECK: Supple. No carotid bruits. No lymphadenopathy or thyromegaly. LUNGS: Clear to auscultation B/L AP and L. HEART: Regular rate and rhythm, S1, S2 without murmurs, rubs or gallops. ABDOMEN: Soft, nontender, and nondistended. Positive bowel sounds. No hepatosplenomegaly was noted. EXTREMITIES: Without any cyanosis, clubbing, rash, lesions or edema. - Patient Status Disposition: Home, Self-Care Condition: Good Functional capacity at discharge: independent ambulation Overall status at discharge: patient is back to baseline - Discharge Instructions Follow Up With: Jed De Jesus MD [Non-Partnered Physician] - (Your appointment has been requested. Our offices will call you with an appointment time and date. ) Lazaro Estes DO [Primary Care Provider] - (Your appointment has been requested. Our offices will call you with an appointment time and date.) - Diet and Activity Activity: increase activity as tolerated, resume usual activities as tolerated Diet: diabetic diet, low fat, low cholesterol, low salt diet
[2018-10-17 11:52] VITALS: BP 147/83
[2018-10-18] MEDS ORDERED: Fluticasone Propionate Nasal 50 MCG/SPRAY BOTTLE NS SCH (09:00)
== END 2018-10-17 12:11 | disposition home or self-care (01) ==
LOC: 3BNU
PROVIDERS: ADMIT Family Medicine; ATTEND Family Medicine